=== PATIENT | male | born 1990 | race American Indian/Alaskan Native ===

== ENCOUNTER 2018-11-14 19:38 | Emergency (ER) | payer OTHER ==
[2018-11-14] MEDS ORDERED: NACL 0.9% 1000 ML 1,000 ML IV ONE (20:21)
[2018-11-14] MEDS ORDERED: SUBLIMAZE IV ONE (20:21)
[2018-11-14] MEDS ORDERED: ANTIBIOTIC OINT TP STA (20:23)
[2018-11-14] MEDS ORDERED: NACL 0.9% IR ONE (20:23)
[2018-11-14] MEDS ORDERED: BOOSTRIX IM ONE (20:23)
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
[2018-11-14 20:58] LABS: Hematocrit 45.7 % (35.5-45.6); Hemoglobin 15.6 gm/dl (11.8-15.2); Mean Corpuscular HGB Conc 34 % (32-34); Mean Corpuscular Volume 85 fl (84-94); Platelet Count 321 K/mm3 (140-440); Red Blood Count 5.39 M/mm3 (3.65-5.03)
[2018-11-14 21:07] LABS: INR 0.96 (0.87-1.13)
[2018-11-14 21:08] LABS: Partial Thromboplastin Time 29.1 Sec. (24.2-36.6)
[2018-11-14 21:13] LABS: BUN/Creatinine Ratio 12; Blood Urea Nitrogen 7 mg/dL (9-20); Calcium 9.7 mg/dL (8.4-10.2); Hemolysis Index 44
[2018-11-14 21:26] VITALS: BP 163/100
[2018-11-14] MEDS ORDERED: HABITROL TD ONE (23:00)
== END 2018-11-14 23:07 | disposition short-term general hospital (02) ==
LOC: ED 19:38
DX: T25.222A Burn of second degree of left foot, initial encounter (principal); T25.221A Burn of second degree of right foot, initial encounter; T23.201A Burn of second degree of right hand, unspecified site, initial encounter; T23.202A Burn of second degree of left hand, unspecified site, initial encounter; I10 Essential (primary) hypertension; W86.8XXA Exposure to other electric current, initial encounter; Y93.89 Activity, other specified; Y92.89 Other specified places as the place of occurrence of the external cause; Y99.8 Other external cause status
CPT/HCPCS: 36415; 80048; 82550; 83735; 85027; 85610; 85730; 90471; 90715; 93005; 93010; 96374; 99285; J3010; J7030